=== PATIENT | male | born 1975 | race Caucasian/White ===

== ENCOUNTER 2023-08-08 12:14 | Day surgery (SDC) | payer BC, MEDICARE ==
[2023-08-05 08:25] LABS: BASOPHILS # (AUTO) 0.1 X10'3 (0-0.2); BASOPHILS % (AUTO) 0.7 % (0-1); EOSINOPHILS # (AUTO) 0.1 X10'3 (0-0.9); EOSINOPHILS % (AUTO) 1.3 % (0-6); HEMATOCRIT 51.2 % (42.0-52.0); HEMOGLOBIN 17.1 g/dl (14.0-17.9); LYMPHOCYTES # (AUTO) 1.8 X10'3 (1.1-4.8); LYMPHOCYTES % (AUTO) 25.3 % (21-51); MEAN CORPUSCULAR HEMOGLOBIN 29.9 PG (27.0-31.0); MEAN CORPUSCULAR HGB CONC 33.4 g/dL (33.0-36.5); MEAN CORPUSCULAR VOLUME 89.7 FL (78-98); MEAN PLATELET VOLUME 8.7 FL (7.4-10.4); MONOCYTES # (AUTO) 0.6 X10'3 (0-0.9); MONOCYTES % (AUTO) 8.8 % (2-12); NEUTROPHILS # (AUTO) 4.5 X10'3 (1.8-7.7); NEUTROPHILS % (AUTO) 63.9 % (42-75); PLATELET COUNT 213 X10'3 (140-440); RED CELL DISTRIBUTION WIDTH 14.1 % (11.5-14.5)
[2023-08-05 08:32] LABS: APTT 27 SECONDS (22-32); PROTHROMBIN TIME 10.5 SECONDS (9.0-12.0)
[2023-08-05 08:38] LABS: ANION GAP 6 (8-16); BLOOD UREA NITROGEN 11 MG/DL (7-18); BUN/CREATININE RATIO 10.7 (10.0-20.0); CALCIUM 9.5 MG/DL (8.5-10.1); CHLORIDE 102 MMOL/L (99-107); CHOL/HDL RATIO 3.9 (0.00-4.99); CHOLESTEROL 120 MG/DL (0-200); CREATININE 1.03 MG/DL (0.60-1.10); GLUCOSE 180 MG/DL (70-104); HDL CHOLESTEROL 31 MG/DL (35-60); LDL CHOLESTEROL 66 MG/DL (50-100); POTASSIUM 3.7 MMOL/L (3.5-5.1); SODIUM 136 MMOL/L (135-145); TOTAL CARBON DIOXIDE 28.3 MMOL/L (24-32); TRIGLYCERIDES 174 MG/DL (20-135); eGFR 77 ML/MIN
[~2023-08-08] VITALS: Ht 180.3 cm; Wt 103.7 kg
[2023-08-08] VITALS (8 sets, daily range): BP systolic 115–135; BP diastolic 58–84; PULSE 69–85; RESP 14–15; TEMP 98; O2SAT 93–97
[~2023-08-08 12:14] MED LIST: AMIT50TA15 PO; ATOR10TA87 PO; BACL10TA PO; BUPROPION HCL XL PO; DAPA10TA PO; HYDROCORTISONE PO; LOP25T PO; LOSA-416 PO; METF500T PO; NITR0.4T51 SL; OXYC20TA55 PO; OXYC40TA48 PO; TESTOSTERONE TOP; ZOLP5TAB8 PO
[2023-08-08] MEDS ORDERED: diphenhydrAMINE 25mg capsule PO PRN (12:35)
[2023-08-08] MEDS ORDERED: normal saline 1,000 ML IV SCH (12:35)
[2023-08-08] MEDS ORDERED: LORazepam 0.5 MG tablet PO PRN (12:35)
[2023-08-08] MEDS ORDERED: DULA1.5P SQ (12:51)
[2023-08-08] MEDS ORDERED: FAMO20TA8 PO (12:51)
[2023-08-08] MEDS ORDERED: TEST200V33 IM (12:51)
[2023-08-08] MEDS ORDERED: TRAZ150T78 PO (12:51)
[2023-08-08] MEDS ORDERED: INSU300I3 SQ (12:51)
[2023-08-08] MEDS ORDERED: EMPA25TA PO (12:51)
[2023-08-08] MEDS ORDERED: OXYC30TA85 PO (12:51)
[2023-08-08] MEDS ORDERED: BUPR300T86 PO (12:51)
[2023-08-08] MEDS ORDERED: ASPI81TA52 PO (12:51)
[2023-08-08] MEDS ORDERED: SILD100T70 PO (12:51)
[2023-08-08] MEDS ORDERED: LIDOcaine 1% (10mg/ml) 2ml vial ONE (13:55)
[2023-08-08] MEDS ORDERED: midazolam 1 mg/ML 2ml injection ONE ×2 (13:55→14:45)
[2023-08-08] MEDS ORDERED: verapamil 2.5 mg/ml inj IV ONE (13:55)
[2023-08-08] MEDS ORDERED: iohexol 350MG/ML 100ml bottle IV ONE (13:55)
[2023-08-08] MEDS ORDERED: heparin 1,000unit/ml 10ml vial 10 ML ONE (13:55)
[2023-08-08] MEDS ORDERED: LIDOcaine 1% (10mg/ml)w/preservative inj. 20ml MDV ONE (13:55)
[2023-08-08] MEDS ORDERED: fentaNYL/PF 50MCG/1 ML 2ML syringe ONE (13:55)
[2023-08-08] MEDS ORDERED: nitroGLYCERIN 500mcg/5mL D5W 5 ML IV ONE (14:00)
[2023-08-08] MEDS ORDERED: HYDROcodone/acetaminophen 10/325mg tab PO PRN (15:25)
[2023-08-08] MEDS ORDERED: HYDROcodone/acetaminophen 5mg/325mg tablet PO PRN (15:25)
== END 2023-08-08 17:20 | disposition home or self-care (01) ==
LOC: SSTAY O 12:14
PROVIDERS: ATTEND Student in an Organized Health Care Education/Training Program
DX: R07.89 Other chest pain (principal); I25.10 Atherosclerotic heart disease of native coronary artery without angina pectoris; E11.9 Type 2 diabetes mellitus without complications; I10 Essential (primary) hypertension; E78.5 Hyperlipidemia, unspecified; G47.33 Obstructive sleep apnea (adult) (pediatric); M48.00 Spinal stenosis, site unspecified; Z79.899 Other long term (current) drug therapy; Z79.82 Long term (current) use of aspirin; Z87.891 Personal history of nicotine dependence
CPT/HCPCS: 36415; 80048; 80061; 85025; 85610; 85730; 93005; 93458; 93571; 99152; 99153; J1644; J2250; J3010; J3490; J7030; Q0163; Q9967; 93572; A6258; A6449; C1751; C1769; C1894

== ENCOUNTER 2023-09-19 08:30 | Inpatient (IN) | payer BC, MEDICARE ==
[2023-09-09 14:32] LABS: BILIRUBIN,URINE NEGATIVE (Neg); CLARITY,URINE CLEAR (Clear); COLOR,URINE YELLOW (Yellow); GLUCOSE, URINE >=1000 mg/dl (Neg); KETONES,URINE NEGATIVE (Neg); LEUKOCYTE ESTERASE ,URINE NEGATIVE (Neg); NITRITES, URINE NEGATIVE (Neg); OCCULT BLOOD,URINE NEGATIVE (Neg); PH,URINE 5.5 (4.8-8.0); PROTEIN,URINE NEGATIVE (Neg); UROBILINOGEN,URINE 0.2 E.U/dL (0.2-1.0)
[2023-09-09 14:42] LABS: BASOPHILS # (AUTO) 0.1 X10'3 (0-0.2); BASOPHILS % (AUTO) 0.8 % (0-1); EOSINOPHILS # (AUTO) 0.1 X10'3 (0-0.9); EOSINOPHILS % (AUTO) 0.9 % (0-6); LYMPHOCYTES # (AUTO) 1.8 X10'3 (1.1-4.8); MEAN CORPUSCULAR HEMOGLOBIN 30.3 PG (27.0-31.0); MEAN CORPUSCULAR HGB CONC 33.4 g/dL (33.0-36.5); MEAN CORPUSCULAR VOLUME 90.7 FL (78-98); MEAN PLATELET VOLUME 8.9 FL (7.4-10.4); MONOCYTES # (AUTO) 0.7 X10'3 (0-0.9); MONOCYTES % (AUTO) 8.5 % (2-12); NEUTROPHILS # (AUTO) 5.3 X10'3 (1.8-7.7); NEUTROPHILS % (AUTO) 66.8 % (42-75); PRE OP HEMOGLOBIN 17.4 g/dL (14.0-17.9); PRE OP PLATELET COUNT 208 X10'3 (140-440); PRE OP WHITE BLOOD COUNT 7.9 10'3 (4.8-10.8); RED BLOOD COUNT 5.74 X10'6 (4.70-6.10); RED CELL DISTRIBUTION WIDTH 14.4 % (11.5-14.5)
[2023-09-09 14:45] LABS: UA COLLECTION TYPE NON-SPECIFIED
[2023-09-09 14:46] LABS: RBC,URINE 0-2 /HPF (0-2); WBC,URINE 0-4 /HPF (0-4)
[2023-09-09 14:47] LABS: BACTERIA,URINE FEW /HPF (Neg); MUCUS STRANDS NONE SEEN /LPF (Neg); SQUAMOUS EPITHELIAL CELL,UR FEW /LPF (FEW)
[2023-09-09 14:47] LABS: ALBUMIN 4.1 G/DL (3.4-5.0); ALBUMIN/GLOBULIN RATIO 1.2 (1.1-1.5); ALKALINE PHOSPHATASE 99 IU/L (46-116); BLOOD UREA NITROGEN 12 MG/DL (7-18); BUN/CREATININE RATIO 14.1 (10.0-20.0); CALCIUM 8.9 MG/DL (8.5-10.1); CHLORIDE 97 MMOL/L (99-107); CREATININE 0.85 MG/DL (0.60-1.10); PRE OP ALT 34 U/L (30-65); PRE OP ANION GAP 7 (8-16); PRE OP AST 20 U/L (10-37); PRE OP BILIRUB, TOTAL 0.5 MG/DL (0.0-1.0); PRE OP GLUCOSE 168 MG/DL (70-104); PRE OP POTASSIUM 3.8 MMOL/L (3.4-5.1); PRE OP SODIUM 133 MMOL/L (135-145); TOTAL PROTEIN 7.6 G/DL (6.4-8.2); eGFR > 90 ML/MIN
[2023-09-09 15:24] LABS: HEMOGLOBIN A1C 8.9 % (4.5-6.2)
[2023-09-09 15:38] LABS: PRE OP PROTIME 10.8 SECONDS (9.0-12.0)
[2023-09-10 09:16] LABS: ABG BASE EXCESS -2.4 mmol/L (-2.0-2.0); ABG HCO3 21.7 mmol/L (22.0-26.0); ABG OXYGEN SATURATION 93.4 % (94-97); ABG PCO2 (T) 36.2 mmHg (35.0-48.0); ABG PH (T) 7.396 (7.340-7.440); ABG PO2 (T) 62.2 mmHg (75.0-100.0); ALLEN'S TEST POSITIVE; FCOHb 0.6 % (0.0-3.9); FHHb 6.6 % (0.0-5.0); FMetHb 0.1 % (0.0-1.5); FO2Hb 92.7 % (94-97); MODE ROOM AIR; TOTAL HEMOGLOBIN 18.2 G/dl (14.0-17.9)
[2023-09-19] VITALS (14 sets, daily range): BP systolic 97–143; BP diastolic 46–77; PULSE 59–115; RESP 5–30; TEMP 97.4; O2SAT 93–99
[~2023-09-19] VITALS: Ht 175.3 cm; Wt 101.2 kg
[~2023-09-19 08:30] MED LIST changes: -AMIT50TA15 PO; +ASPI81TA52 PO; -BACL10TA PO; +BUPR300T86 PO; -BUPROPION HCL XL PO; -DAPA10TA PO; +DOCUMENT DATE & TIME OF BETA-BLOCKER PO ONE; +DULA1.5P SQ; +EMPA25TA PO; +FAMO20TA8 PO; +INSU300I3 SQ; +Insulin Reg/NS 100units/100mL 100 ML IV SCH; +LORazepam 2 mg/ml vial IV ONE; -LOSA-416 PO; -METF500T PO; +OXYC20TA40 PO; -OXYC20TA55 PO; +OXYC30TA85 PO; -OXYC40TA48 PO; +SILD100T70 PO; +TEST200V33 IM; -TESTOSTERONE TOP; +TRAZ150T78 PO; -ZOLP5TAB8 PO; +[UNRECOGNIZED DRUG - OTHER] PO; +cefazolin 2gm/D5W 100mL 100 ML IV ONE; +dextrose 50%-water 50ml dispensing syringe IV PRN; +famotidine 20mg tablet PO ONE; +metoprolol tartrate 12.5mg (1/2 tablet) PO ONE; +mupirocin 2% nasal ointment 1gm UD NS ONE; +ringers solution, lacted 1,000 ML IV SCH; +vancomycin 1,500 MG in NS 300ml IV soln IV ONE
[2023-09-19] MEDS ORDERED: epiNEPHrine 1 mg/ml inj ONE ×2 (12:18→13:08)
[2023-09-19] MEDS ORDERED: ceFAZolin 1000mg inj ONE (12:18)
[2023-09-19] MEDS ORDERED: BUPIVAcaine 0.5% inj/PF 30 ML ONE ×2 (12:19→12:47)
[2023-09-19] MEDS ORDERED: propofol inj 20 ML IV ONE (12:48)
[2023-09-19] MEDS ORDERED: MIDAZolam 1mg/ml 10ml vial ONE (12:50)
[2023-09-19] MEDS ORDERED: SUfentanil 50mcg/ml 1ml amp IV ONE ×2 (12:50→12:53)
[2023-09-19] MEDS ORDERED: rocuronium 10mg/ml inj IV ONE ×2 (12:50)
--- NOTE | 2023-09-19 13:22 | NUR ---
BLACK BAG PACK, 1 PERSONAL BAG, IS ALL BROUGHT TO ROOM 2038, PLACED IN DRAWERS.
[2023-09-19 14:00] LABS: ABG HCO3 23.1 mmol/L (22.0-26.0); ABG OXYGEN SATURATION 98.2 % (94-97); ABG PCO2 37.1 mmHg (35.0-48.0); ABG PH 7.412 (7.340-7.440); ABG PO2 109.2 mmHg (75.0-100.0); CL (ABG) 99 mmol/L (99-107); FHHb 1.8 % (0.0-5.0); FMetHb 0.3 % (0.0-1.5); FO2Hb 97.9 % (94-97); GLUCOSE (ABG) 107 mg/dl (70-104); IONIZED CA (ABG) 1.13 mmol/L (1.10-1.30); K (ABG) 3.8 mmol/L (3.5-5.1); TOTAL HEMOGLOBIN 15.8 G/dl (14.0-17.9)
[2023-09-19 14:16] LABS: ACT @ 1.70 U 304 SEC (193-297); ACT @ 2.84 U 458 SEC (260-420); BASELINE ACT 142 SEC (101-148)
[2023-09-19] MEDS ORDERED: ceFAZolin 1000mg inj IM ONE (14:26)
[2023-09-19] MEDS ORDERED: epiNEPHrine 1 mg/ml inj SQ ONE (14:28)
[2023-09-19] MEDS ORDERED: papaverine 30 mg/ml 2ml inj. IV ONE (14:30)
[2023-09-19] MEDS ORDERED: heparin 10,000 units/1 ML INJ IV ONE (14:31)
[2023-09-19] MEDS ORDERED: BUPIVAcaine 0.5% inj/PF 30 ml vial IJ ONE (14:33)
[2023-09-19 15:17] LABS: ABG BASE EXCESS VENOUS -0.6 mmol/L (-2.0 - 2.0); ABG HCO3 VENOUS 25.7 mmol/L (21.0-28.0); ABG OXYGEN SATURATION VENOUS 71.6 % (75 - 99 %); ABG PCO2 VENOUS 48.1 mmHg (41.0-54.0); ABG PH (VENOUS) 7.346 (7.310-7.450); ABG PO2 VENOUS 36.6 mmHg (25.0-35.0); CL (ABG) 101 mmol/L (99-107); FCOHb VENOUS 0.1 %; FHHb VENOUS 28.3 %; FMetHb VENOUS 0.1 % (0.0 - 0.5); FO2Hb VENOUS 71.5 %; GLUCOSE (ABG) 120 mg/dl (70-104); IONIZED CA (ABG) 1.11 mmol/L (1.10-1.30); TOTAL HEMOGLOBIN 15.8 G/dl (14.0-17.9)
[2023-09-19 16:14] LABS: ABG BASE EXCESS -4.4 mmol/L (-2.0-2.0); ABG HCO3 21.9 mmol/L (22.0-26.0); ABG OXYGEN SATURATION 68.4 % (94-97); ABG PCO2 44.3 mmHg (35.0-48.0); ABG PH 7.311 (7.340-7.440); CL (ABG) 101 mmol/L (99-107); FCOHb 0.2 % (0.0-3.9); FHHb 31.5 % (0.0-5.0); FO2Hb 68.3 % (94-97); GLUCOSE (ABG) 130 mg/dl (70-104); IONIZED CA (ABG) 1.11 mmol/L (1.10-1.30); TOTAL HEMOGLOBIN 16.1 G/dl (14.0-17.9)
[2023-09-19 17:00] LABS: ACTIVATED CLOTTING TIME 130 SEC (101-148)
[2023-09-19 17:00] LABS: ABG BASE EXCESS VENOUS -3.3 mmol/L (-2.0 - 2.0); ABG HCO3 VENOUS 22.3 mmol/L (21.0-28.0); ABG OXYGEN SATURATION VENOUS 73.1 % (75 - 99 %); ABG PCO2 VENOUS 41.9 mmHg (41.0-54.0); ABG PH (VENOUS) 7.344 (7.310-7.450); ABG PO2 VENOUS 37.8 mmHg (25.0-35.0); CL (ABG) 102 mmol/L (99-107); FCOHb VENOUS 0.2 %; FHHb VENOUS 26.8 %; FMetHb VENOUS 0.3 % (0.0 - 0.5); FO2Hb VENOUS 72.7 %; GLUCOSE (ABG) 132 mg/dl (70-104); K (ABG) 3.8 mmol/L (3.5-5.1)
[2023-09-19] MEDS ORDERED: albumin (Human) 5% 250ml 250 ML IV ONE (17:16)
[2023-09-19] MEDS ORDERED: bisacodyl 10mg suppository rectal RC PRN (17:25)
[2023-09-19] MEDS ORDERED: niCARDipine-NS 40mg/200ml IVPB 200 ML IV PRN (17:25)
[2023-09-19] MEDS ORDERED: potassium Cl 20 mEq SR tablet PO PRN (17:25)
[2023-09-19] MEDS ORDERED: mineral oil 133ml enema RC PRN (17:25)
[2023-09-19] MEDS ORDERED: Neutra Phos packet PO PRN (17:25)
[2023-09-19] MEDS ORDERED: magnesium 2GM in 50ml NS 50 ML IV PRN (17:25)
[2023-09-19] MEDS ORDERED: potassium CL 10mEq/100ml bag 100 ML IV PRN (17:25)
[2023-09-19] MEDS ORDERED: dextrose 50%-water 50ml dispensing syringe IV PRN (17:25)
[2023-09-19] MEDS ORDERED: HYDROcodone/acetaminophen 10/325mg tab PO PRN (17:25)
[2023-09-19] MEDS ORDERED: magnesium hydroxide 30ml (MOM) UD suspension PO PRN (17:25)
[2023-09-19] MEDS ORDERED: sodium chloride 0.45% 1,000 ML IV SCH (17:25)
[2023-09-19] MEDS ORDERED: potassium Cl 40MEQ/270ML bag 250 ML IV PRN (17:25)
[2023-09-19] MEDS ORDERED: sodium phosphate inj. 30 MMOL in dextrose 5%-water 250 ML IV PRN (17:25)
[2023-09-19] MEDS ORDERED: metoclopramide 5 mg/ml inj IV PRN (17:25)
[2023-09-19] MEDS ORDERED: potassium Cl 40MEQ/1/2NS 520ml 520 ML IV PRN (17:25)
[2023-09-19] MEDS ORDERED: ondansetron/PF 4mg/2ml inj IV PRN (17:25)
[2023-09-19] MEDS ORDERED: sodium phosphate inj. 15 MMOL in dextrose 5%-water 250 ML IV PRN (17:25)
[2023-09-19] MEDS ORDERED: albumin (Human) 5% 250ml 250 ML IV PRN (17:25)
[2023-09-19] MEDS: Insulin Reg/NS 100units/100mL 100 ML IV SCH (17:25)
[2023-09-19] MEDS ORDERED: insulin glargine (Lantus) pen - multi-dose SQ PRN (17:25)
[2023-09-19] MEDS ORDERED: acetaminophen 325mg tablet PO PRN ×2 (17:25)
[2023-09-19] MEDS ORDERED: morphine 2 MG/ML inj. syringe IV PRN (17:25)
[2023-09-19] MEDS ORDERED: sugammadex 200mg/2ml injection IV ONE (17:53)
[2023-09-19] MEDS: nitroGLYCERIN-Tridil 50MG/D5W 250 ML IV SCH (18:00)
--- NOTE | 2023-09-19 18:11 | NUR ---
NO SBT DONE DUE TO PATIENT WAKING UP WILD AND THRASHING AROUND ATTEMPTING TO PULL LINES OUT. DR CRISTOBAL AT BEDSIDE WITH ORDER TO EXTUBATE THE PATIENT. DR CHEN, ANESTHESIA, AT BEDSIDE WELL. DR CHEN GAVE PT A REVERSAL AGENT AND PERSONALLY EXTUBATED PATIENT. NO WEANING PARAMETERS DONE. POST OP ABG DONE AND REPORTED TO DAYSPAFT JOY CARVAJAL AND NOC OSMAR GAMEZ. Addendum: 09/19/23 at 1814 by Sharonda Cintron RT Amended: Links added.
[2023-09-19] MEDS ORDERED: morphine 4 MG/ML inj SYRINge IV ONE ×2 (18:12→19:10)
[2023-09-19 18:13] LABS: ABG HCO3 22.3 mmol/L (22.0-26.0); ABG OXYGEN SATURATION 93.2 % (94-97); ABG PCO2 (T) 47.6 mmHg (35.0-48.0); ABG PH (T) 7.284 (7.340-7.440); ABG PO2 (T) 67.9 mmHg (75.0-100.0); FHHb 6.7 % (0.0-5.0); FLOW 4 L/min; FMetHb 0.2 % (0.0-1.5); FO2Hb 92.1 % (94-97); MODE NASAL CANNULA; PATIENT TEMPERATURE 36.2; TOTAL HEMOGLOBIN 16.5 G/dl (14.0-17.9)
[2023-09-19 18:22] LABS: BASOPHILS # (AUTO) 0.1 X10'3 (0-0.2); BASOPHILS % (AUTO) 0.3 % (0-1); EOSINOPHILS # (AUTO) 0.1 X10'3 (0-0.9); EOSINOPHILS % (AUTO) 0.3 % (0-6); HEMOGLOBIN 15.4 g/dl (14.0-17.9); LYMPHOCYTES # (AUTO) 2.9 X10'3 (1.1-4.8); LYMPHOCYTES % (AUTO) 12.3 % (21-51); MEAN CORPUSCULAR HEMOGLOBIN 29.5 PG (27.0-31.0); MEAN CORPUSCULAR HGB CONC 32.1 g/dL (33.0-36.5); MEAN CORPUSCULAR VOLUME 91.9 FL (78-98); MEAN PLATELET VOLUME 8.5 FL (7.4-10.4); MONOCYTES # (AUTO) 1.7 X10'3 (0-0.9); MONOCYTES % (AUTO) 7.3 % (2-12); NEUTROPHILS # (AUTO) 18.9 X10'3 (1.8-7.7); NEUTROPHILS % (AUTO) 79.8 % (42-75); PLATELET COUNT 255 X10'3 (140-440); RED BLOOD COUNT 5.22 X10'6 (4.70-6.10); RED CELL DISTRIBUTION WIDTH 14.4 % (11.5-14.5); WHITE BLOOD COUNT 23.6 X10'3 (4.5-11.0)
[2023-09-19 18:36] LABS: APTT 27 SECONDS (22-32); INR 1.1 INR; PROTHROMBIN TIME 11.9 SECONDS (9.0-12.0)
[2023-09-19 18:39] LABS: ALANINE AMINOTRANSFERASE 25 U/L (12-78); ALBUMIN 3.5 G/DL (3.4-5.0); ALBUMIN/GLOBULIN RATIO 1.4 (1.1-1.5); ALKALINE PHOSPHATASE 65 IU/L (46-116); ANION GAP 9 (8-16); ASPARTATE AMINO TRANSFERASE 27 U/L (10-37); BILIRUBIN,TOTAL 0.7 MG/DL (0.1-1.0); BLOOD UREA NITROGEN 12 MG/DL (7-18); BUN/CREATININE RATIO 13.8 (10.0-20.0); CHLORIDE 105 MMOL/L (99-107); CREATININE 0.87 MG/DL (0.60-1.10); GLUCOSE 123 MG/DL (70-104); MAGNESIUM 1.8 MG/DL (1.5-2.4); PHOSPHORUS 2.5 MG/DL (2.3-4.5); POTASSIUM 3.6 MMOL/L (3.5-5.1); SODIUM 139 MMOL/L (135-145); TOTAL CARBON DIOXIDE 25.2 MMOL/L (24-32); eCRCL 104 ML/MIN; eGFR > 90 ML/MIN
[2023-09-19] MEDS: morphine 4 MG/ML inj SYRINge IV PRN ×3 (19:11→22:54)
[2023-09-19] MEDS: ketorolac trometh. 30mg/ml inj. IM SCH (19:49)
[2023-09-19] MEDS: vancomycin/NS 1 GM ADD-VANTAGE 250 ML IV SCH (19:49)
[2023-09-19] MEDS: mupirocin 2% nasal ointment 1gm UD NS SCH (19:50)
[2023-09-19] MEDS: potassium Cl 20mEq/100mL bag 100 ML IV PRN ×2 (19:57→20:36)
[2023-09-19] MEDS ORDERED: acetaminophen 1,000mg/100ml IV 100 ML IV ONE (20:15)
[2023-09-19] MEDS: magnesium 4gm in 100ml NS 100 ML IV PRN (21:05)
[2023-09-19] MEDS: atorvastatin 10mg tablet PO SCH (21:13)
[2023-09-19] MEDS: sennosides/docusate sodium tablet PO SCH (21:14)
[2023-09-19] MEDS: HYDROcodone/acetaminophen 10/325mg tab PO PRN (21:14)
[2023-09-20] VITALS (24 sets, daily range): BP systolic 87–147; BP diastolic 46–75; PULSE 92–111; RESP 9–35; O2SAT 91–98
[2023-09-20 00:38] LABS: BASOPHILS % (AUTO) 0.1 % (0-1); EOSINOPHILS % (AUTO) 0 % (0-6); HEMOGLOBIN 14.7 g/dl (14.0-17.9); LYMPHOCYTES # (AUTO) 0.7 X10'3 (1.1-4.8); LYMPHOCYTES % (AUTO) 4.5 % (21-51); MEAN CORPUSCULAR HEMOGLOBIN 30.4 PG (27.0-31.0); MEAN CORPUSCULAR HGB CONC 33.3 g/dL (33.0-36.5); MEAN CORPUSCULAR VOLUME 91.2 FL (78-98); MEAN PLATELET VOLUME 8.6 FL (7.4-10.4); MONOCYTES # (AUTO) 0.9 X10'3 (0-0.9); NEUTROPHILS # (AUTO) 13.2 X10'3 (1.8-7.7); NEUTROPHILS % (AUTO) 89.4 % (42-75); PLATELET COUNT 233 X10'3 (140-440); RED BLOOD COUNT 4.83 X10'6 (4.70-6.10); RED CELL DISTRIBUTION WIDTH 14.5 % (11.5-14.5); WHITE BLOOD COUNT 14.7 X10'3 (4.5-11.0)
[2023-09-20 00:51] LABS: ALBUMIN 3.5 G/DL (3.4-5.0); ANION GAP 11 (8-16); BLOOD UREA NITROGEN 13 MG/DL (7-18); BUN/CREATININE RATIO 17.6 (10.0-20.0); CHLORIDE 103 MMOL/L (99-107); CREATININE 0.74 MG/DL (0.60-1.10); GLUCOSE 118 MG/DL (70-104); MAGNESIUM 2.8 MG/DL (1.5-2.4); PHOSPHORUS 3.6 MG/DL (2.3-4.5); POTASSIUM 4.4 MMOL/L (3.5-5.1); SODIUM 136 MMOL/L (135-145); TOTAL CARBON DIOXIDE 22.1 MMOL/L (24-32); eCRCL 122 ML/MIN; eGFR > 90 ML/MIN
[2023-09-20] MEDS: ceFAZolin/D5W- 1GM premix 50 ML IV SCH ×4 (01:31→23:56)
[2023-09-20] MEDS: ketorolac trometh. 30mg/ml inj. IM SCH ×2 (02:00→09:24)
[2023-09-20] MEDS: HYDROcodone/acetaminophen 10/325mg tab PO PRN (05:08)
[2023-09-20 05:26] LABS: BASOPHILS % (AUTO) 0.1 % (0-1); EOSINOPHILS % (AUTO) 0 % (0-6); HEMATOCRIT 44.5 % (42.0-52.0); HEMOGLOBIN 14.4 g/dl (14.0-17.9); LYMPHOCYTES # (AUTO) 0.7 X10'3 (1.1-4.8); LYMPHOCYTES % (AUTO) 6.1 % (21-51); MEAN CORPUSCULAR HEMOGLOBIN 29.8 PG (27.0-31.0); MEAN CORPUSCULAR HGB CONC 32.4 g/dL (33.0-36.5); MEAN CORPUSCULAR VOLUME 91.9 FL (78-98); MEAN PLATELET VOLUME 8.7 FL (7.4-10.4); MONOCYTES # (AUTO) 0.8 X10'3 (0-0.9); MONOCYTES % (AUTO) 6.8 % (2-12); NEUTROPHILS # (AUTO) 10.6 X10'3 (1.8-7.7); PLATELET COUNT 214 X10'3 (140-440); RED BLOOD COUNT 4.84 X10'6 (4.70-6.10); RED CELL DISTRIBUTION WIDTH 14.9 % (11.5-14.5); WHITE BLOOD COUNT 12.2 X10'3 (4.5-11.0)
[2023-09-20 06:12] LABS: ALANINE AMINOTRANSFERASE 27 U/L (12-78); ALBUMIN 3.4 G/DL (3.4-5.0); ALBUMIN/GLOBULIN RATIO 1.3 (1.1-1.5); ALKALINE PHOSPHATASE 62 IU/L (46-116); ANION GAP 17 (8-16); ASPARTATE AMINO TRANSFERASE 59 U/L (10-37); BILIRUBIN,TOTAL 0.9 MG/DL (0.1-1.0); BLOOD UREA NITROGEN 13 MG/DL (7-18); BUN/CREATININE RATIO 17.1 (10.0-20.0); CALCIUM 7.8 MG/DL (8.5-10.1); CHLORIDE 102 MMOL/L (99-107); CREATININE 0.76 MG/DL (0.60-1.10); GLUCOSE 138 MG/DL (70-104); SODIUM 136 MMOL/L (135-145); TOTAL CARBON DIOXIDE 17.3 MMOL/L (24-32); eCRCL 119 ML/MIN; eGFR > 90 ML/MIN
--- NOTE | 2023-09-20 06:30 | NUR ---
Patient in room ICU 2038. I have received report from Veronica HAMILTON and had the opportunity to ask questions and assume patient care.
[2023-09-20 06:37] LABS: ABG PO2 35.3 mmHg (75.0-100.0)
[2023-09-20] MEDS: morphine 4 MG/ML inj SYRINge IV PRN (06:58)
--- NOTE | 2023-09-20 07:21 | NUR ---
Dr. Burnett - ST Elev RN noted ST elevation on bedside monitor. [address] Berg with info. Reported pt is stable. He will see pt when he comes in. PA aware also
[2023-09-20] MEDS ORDERED: TESTOSTERONE CYPIONATE 200 MG/ML VIAL IM SCH (07:50)
[2023-09-20] MEDS: hydrocortisone 10mg tablet PO SCH ×2 (08:00→20:05)
[2023-09-20] MEDS: vancomycin/NS 1 GM ADD-VANTAGE 250 ML IV SCH ×2 (09:21→20:07)
[2023-09-20] MEDS: LIDOcaine 5% patch TP SCH (09:21)
[2023-09-20] MEDS: sennosides/docusate sodium tablet PO SCH ×2 (09:22→20:07)
[2023-09-20] MEDS: aspirin 81mg tab.chew PO SCH (09:22)
[2023-09-20] MEDS: metoprolol tartrate 12.5mg (1/2 tablet) PO SCH ×2 (09:22→20:29)
[2023-09-20] MEDS: mupirocin 2% nasal ointment 1gm UD NS SCH ×2 (09:23→20:06)
[2023-09-20] MEDS: oxyCODONE/APAP 10/325mg tablet PO PRN ×4 (09:23→20:06)
[2023-09-20] MEDS: buPROPion SR 150mg tablet PO SCH ×2 (09:23→20:07)
[2023-09-20] MEDS: ketorolac trometh. 30mg/ml inj. IV SCH ×3 (09:35→20:29)
--- NOTE | 2023-09-20 09:45 | NUR ---
Art line and solomon D/c per Dr. Berg's order, cannulas intact
--- NOTE | 2023-09-20 11:23 | NUR ---
Nutrition consult: Per EMR pt POD #1 s/p CABG x4 and with T2DM with A1c 8.9%. Pt would benefit from post CABG and DM nutrition therapy educations as appropriate and as able. Will continue to follow. Addendum: 09/20/23 at [address] Amended: Links added.
[2023-09-20 11:24] LABS: MAGNESIUM 2.6 MG/DL (1.5-2.4)
[2023-09-20] MEDS: nitroGLYCERIN-Tridil 50MG/D5W 250 ML IV SCH (16:23)
--- NOTE | 2023-09-20 18:26 | NUR ---
Patient in room ICU 2038. I have received report from Lata Lance RN and had the opportunity to ask questions and assume patient care.
[2023-09-20] MEDS: insulin Lispro (HumaLOG) vial - multi-dose SQ SCH (19:29)
[2023-09-20] MEDS: traZODone 150mg tablet PO SCH (20:06)
[2023-09-20] MEDS: atorvastatin 10mg tablet PO SCH (20:14)
[2023-09-20] MEDS: insulin glargine (Lantus) pen - multi-dose SQ SCH (22:30)
[2023-09-21] VITALS (23 sets, daily range): BP systolic 102–140; BP diastolic 54–87; PULSE 80–118; RESP 12–26; TEMP 98.6; O2SAT 90–100
[2023-09-21] MEDS: oxyCODONE/APAP 10/325mg tablet PO PRN ×5 (00:34→21:50)
[2023-09-21] MEDS: ketorolac trometh. 30mg/ml inj. IV SCH ×4 (02:06→19:52)
[2023-09-21 02:38] LABS: BASOPHILS % (AUTO) 0.1 % (0-1); EOSINOPHILS % (AUTO) 0 % (0-6); HEMATOCRIT 43.3 % (42.0-52.0); HEMOGLOBIN 14.3 g/dl (14.0-17.9); LYMPHOCYTES # (AUTO) 1.3 X10'3 (1.1-4.8); LYMPHOCYTES % (AUTO) 8.5 % (21-51); MEAN CORPUSCULAR HEMOGLOBIN 30.4 PG (27.0-31.0); MEAN CORPUSCULAR HGB CONC 33.1 g/dL (33.0-36.5); MEAN PLATELET VOLUME 8.2 FL (7.4-10.4); MONOCYTES # (AUTO) 1.6 X10'3 (0-0.9); MONOCYTES % (AUTO) 10.7 % (2-12); NEUTROPHILS # (AUTO) 12.2 X10'3 (1.8-7.7); NEUTROPHILS % (AUTO) 80.7 % (42-75); PLATELET COUNT 221 X10'3 (140-440); RED CELL DISTRIBUTION WIDTH 14.8 % (11.5-14.5); WHITE BLOOD COUNT 15.1 X10'3 (4.5-11.0)
[2023-09-21] MEDS: Insulin Reg/NS 100units/100mL 100 ML IV SCH (02:45)
[2023-09-21 02:47] LABS: ANION GAP 15 (8-16); BLOOD UREA NITROGEN 25 MG/DL (7-18); BUN/CREATININE RATIO 24.8 (10.0-20.0); CALCIUM 8.1 MG/DL (8.5-10.1); CHLORIDE 102 MMOL/L (99-107); CREATININE 1.01 MG/DL (0.60-1.10); GLUCOSE 196 MG/DL (70-104); POTASSIUM 4.3 MMOL/L (3.5-5.1); SODIUM 134 MMOL/L (135-145); TOTAL CARBON DIOXIDE 17.2 MMOL/L (24-32); eCRCL 89 ML/MIN; eGFR 79 ML/MIN
[2023-09-21 03:26] LABS: PHOSPHORUS 2.4 MG/DL (2.3-4.5)
[2023-09-21] MEDS: magnesium 4gm in 100ml NS 100 ML IV PRN (04:20)
--- NOTE | 2023-09-21 06:21 | NUR ---
Problems reprioritized. Patient report given, questions answered & plan of care reviewed with Angie HAMILTON.
--- NOTE | 2023-09-21 06:30 | NUR ---
Assumed care of pt after report from Santa HAMILTON.
[2023-09-21] MEDS: pantoprazole 40mg Tablet.DR PO SCH (07:47)
[2023-09-21] MEDS: LIDOcaine 5% patch TP SCH (08:00)
--- NOTE | 2023-09-21 08:00 | NUR ---
NANCY Florez, at bedside, pulled chest tubes and RN DC'd the hines cath. Pt tolerated both well. Pt on O2 2L NC.
[2023-09-21] MEDS: metoprolol tartrate 12.5mg (1/2 tablet) PO SCH (08:05)
[2023-09-21] MEDS ORDERED: magnesium 2GM in 50ml NS 50 ML IV PRN (08:10)
[2023-09-21] MEDS ORDERED: potassium Cl 20 mEq SR tablet PO PRN ×2 (08:10)
[2023-09-21] MEDS ORDERED: potassium Cl 20mEq/100mL bag 100 ML IV PRN (08:10)
[2023-09-21] MEDS ORDERED: potassium CL 10mEq/100ml bag 100 ML IV PRN (08:10)
[2023-09-21] MEDS ORDERED: magnesium 4gm in 100ml NS 100 ML IV PRN (08:10)
[2023-09-21] MEDS ORDERED: potassium Cl 40MEQ/1/2NS 520ml 520 ML IV PRN (08:10)
[2023-09-21] MEDS ORDERED: potassium Cl 40MEQ/270ML bag 250 ML IV PRN (08:10)
[2023-09-21] MEDS ORDERED: amiodarone 150mg/dext, iso-os 100 ML IV ONE (08:25)
--- NOTE | 2023-09-21 08:30 | NUR ---
Pt was assisted OOB to chair for breakfast and HR changed to AF RVR. Amiodarone bolus and gtt ordered and started. Pt was assisted back to bed. Routine medications were given along w/ pain med. HR began to decrease w/ the Amio bolus.
[2023-09-21] MEDS ORDERED: metoprolol tartrate 25mg tablet PO ONE (08:34)
[2023-09-21] MEDS: amiodarone/D5 360MG/200ML BAG 200 ML IV SCH ×2 (08:37→14:53)
[2023-09-21] MEDS: ceFAZolin/D5W- 1GM premix 50 ML IV SCH (08:41)
[2023-09-21] MEDS: mupirocin 2% nasal ointment 1gm UD NS SCH (08:41)
[2023-09-21] MEDS: buPROPion SR 150mg tablet PO SCH ×2 (08:42→19:54)
[2023-09-21] MEDS: aspirin 81mg tab.chew PO SCH (08:43)
[2023-09-21] MEDS: sennosides/docusate sodium tablet PO SCH ×2 (08:45→19:54)
[2023-09-21] MEDS: metoprolol tartrate 25mg tablet PO SCH ×2 (08:49→19:53)
[2023-09-21] MEDS: hydrocortisone 10mg tablet PO SCH ×2 (09:02→20:00)
[2023-09-21] MEDS: insulin Lispro (HumaLOG) vial - multi-dose SQ SCH ×2 (09:18→13:59)
--- NOTE | 2023-09-21 10:30 | NUR ---
pt has been resting well and VSS. Pt's went home not feeling well, and was encouraged to check for Covid 19. Pt's called to report that she is Covid +. Pt has been tested; results are pending.
--- NOTE | 2023-09-21 12:30 | NUR ---
Pt moving well and OOB to chair for lunch.
--- NOTE | 2023-09-21 13:30 | NUR ---
Pt remains OOB to chair. Fu A & B are both negative. Covid test still pending.
--- NOTE | 2023-09-21 15:37 | NUR ---
Nutrition consult: Attempted visit with pt at bedside however patient unavailable with curtains pulled back and door closed. Will f/u at another time. Noted pt eating poorly, documented with 0-25% PO intake while on a solid diet. Recommend an Ensure Enlive TID to optimize nutrient intake and promote wound healing, pending physician approval in EMR. Will obtain food preferences once able to f/u with pt. Will continue to follow. Addendum: 09/21/23 at [address] Amended: Links added.
--- NOTE | 2023-09-21 17:40 | NUR ---
Report via SBAR given to Jason HAMILTON. Pt going to [facility] [id number] via w/ Tele 15.
--- NOTE | 2023-09-21 17:56 | NUR ---
Pt arrived from ICU. Placed in bed and oriented to room.
[2023-09-21] MEDS: magnesium Cl slow-release 64mg tablet PO SCH (19:53)
[2023-09-21] MEDS: atorvastatin 10mg tablet PO SCH (21:50)
[2023-09-21] MEDS: traZODone 150mg tablet PO SCH (21:50)
[2023-09-21] MEDS: insulin glargine (Lantus) pen - multi-dose SQ SCH (23:30)
[2023-09-22] VITALS (13 sets, daily range): BP systolic 93–122; BP diastolic 53–79; PULSE 79–107; RESP 16–20; TEMP 96.7–99.2; O2SAT 91–97
[2023-09-22] MEDS: amiodarone/D5 360MG/200ML BAG 200 ML IV SCH ×4 (00:47→15:05)
[2023-09-22] MEDS: ketorolac trometh. 30mg/ml inj. IV SCH ×5 (02:27→22:17)
[2023-09-22] MEDS: oxyCODONE/APAP 10/325mg tablet PO PRN ×5 (02:27→19:28)
--- NOTE | 2023-09-22 06:48 | NUR ---
Problems reprioritized. Patient report given, questions answered & plan of care reviewed with Arie HAMILTON. Pt stable at transfer of care
[2023-09-22 06:58] LABS: BASOPHILS % (AUTO) 0.4 % (0-1); EOSINOPHILS % (AUTO) 0.1 % (0-6); HEMATOCRIT 40.5 % (42.0-52.0); HEMOGLOBIN 13.5 g/dl (14.0-17.9); LYMPHOCYTES # (AUTO) 1.8 X10'3 (1.1-4.8); LYMPHOCYTES % (AUTO) 16.8 % (21-51); MEAN CORPUSCULAR HEMOGLOBIN 30.4 PG (27.0-31.0); MEAN CORPUSCULAR HGB CONC 33.2 g/dL (33.0-36.5); MEAN CORPUSCULAR VOLUME 91.4 FL (78-98); MEAN PLATELET VOLUME 8.2 FL (7.4-10.4); MONOCYTES # (AUTO) 1.1 X10'3 (0-0.9); MONOCYTES % (AUTO) 10.5 % (2-12); NEUTROPHILS # (AUTO) 7.8 X10'3 (1.8-7.7); NEUTROPHILS % (AUTO) 72.2 % (42-75); PLATELET COUNT 198 X10'3 (140-440); RED BLOOD COUNT 4.43 X10'6 (4.70-6.10); RED CELL DISTRIBUTION WIDTH 14.9 % (11.5-14.5); WHITE BLOOD COUNT 10.7 X10'3 (4.5-11.0)
[2023-09-22 07:13] LABS: ALBUMIN 2.6 G/DL (3.4-5.0); ANION GAP 10 (8-16); BLOOD UREA NITROGEN 29 MG/DL (7-18); BUN/CREATININE RATIO 42.6 (10.0-20.0); CALCIUM 8.5 MG/DL (8.5-10.1); CHLORIDE 103 MMOL/L (99-107); CREATININE 0.68 MG/DL (0.60-1.10); GLUCOSE 172 MG/DL (70-104); SODIUM 135 MMOL/L (135-145); TOTAL CARBON DIOXIDE 21.7 MMOL/L (24-32); eCRCL 133 ML/MIN; eGFR > 90 ML/MIN
[2023-09-22] MEDS: hydrocortisone 10mg tablet PO SCH ×2 (07:40→22:16)
[2023-09-22] MEDS ORDERED: furosemide 40mg/4ml inj IV ONE (07:40)
[2023-09-22] MEDS: pantoprazole 40mg Tablet.DR PO SCH (07:40)
[2023-09-22] MEDS: buPROPion SR 150mg tablet PO SCH ×2 (07:41→19:22)
[2023-09-22] MEDS: sennosides/docusate sodium tablet PO SCH ×2 (07:41→19:22)
[2023-09-22] MEDS: metoprolol tartrate 25mg tablet PO SCH ×4 (07:41→20:00)
[2023-09-22] MEDS: magnesium Cl slow-release 64mg tablet PO SCH ×2 (07:41→19:21)
[2023-09-22] MEDS: LIDOcaine 5% patch TP SCH (07:42)
[2023-09-22] MEDS: aspirin 81mg tab.chew PO SCH (07:42)
[2023-09-22] MEDS: metoprolol tartrate 12.5mg (1/2 tablet) PO SCH (07:42)
[2023-09-22] MEDS: lactose-reduced food (Ensure Enlive) - 237ml bottle PO SCH ×3 (08:00→18:00)
[2023-09-22 10:05] LABS: MAGNESIUM 2.2 MG/DL (1.5-2.4)
[2023-09-22] MEDS: insulin Lispro (HumaLOG) vial - multi-dose SQ SCH ×3 (10:52→19:08)
--- NOTE | 2023-09-22 15:18 | NUR ---
Diabetes and CABG consult: Pt is s/p CABG x4 POD 3 per EMR. Pt also presents with an A1c of 8.9% this admit. Pt seen at bedside for written/verbal diabetes and heart healthy/high protein nutrition education. Pt states he sees his PCP every few months and takes his medication as prescribed. Pt states his A1c is higher than normal due to not eating well the last few months. Noted premiere protein shake at bedside. RD contact also provided and encouraged pt to reach out for any nutrition questions or concerns. Addendum: 09/22/23 at [address] Amended: Links added.
[2023-09-22] MEDS ORDERED: AMI200T PO (19:46)
[2023-09-22] MEDS: traZODone 150mg tablet PO SCH (21:20)
[2023-09-22] MEDS: atorvastatin 10mg tablet PO SCH (21:21)
[2023-09-22] MEDS: insulin glargine (Lantus) pen - multi-dose SQ SCH (21:25)
[2023-09-22] MEDS: amiodarone 200mg tablet PO SCH (21:26)
[2023-09-23] MEDS: oxyCODONE/APAP 10/325mg tablet PO PRN ×4 (00:35→13:52)
[2023-09-23 02:00] VITALS: BP 125/76; PULSE 96; RESP 16; TEMP 98.2; O2SAT 96
[2023-09-23 05:35] LABS: ALBUMIN 2.4 G/DL (3.4-5.0); ANION GAP 4 (8-16); BLOOD UREA NITROGEN 22 MG/DL (7-18); BUN/CREATININE RATIO 32.4 (10.0-20.0); CALCIUM 8.2 MG/DL (8.5-10.1); CHLORIDE 104 MMOL/L (99-107); CREATININE 0.68 MG/DL (0.60-1.10); GLUCOSE 149 MG/DL (70-104); POTASSIUM 3.9 MMOL/L (3.5-5.1); SODIUM 136 MMOL/L (135-145); eCRCL 133 ML/MIN; eGFR > 90 ML/MIN
[2023-09-23 05:42] LABS: BASOPHILS # (AUTO) 0.1 X10'3 (0-0.2); BASOPHILS % (AUTO) 0.9 % (0-1); EOSINOPHILS % (AUTO) 0.5 % (0-6); HEMATOCRIT 37.6 % (42.0-52.0); HEMOGLOBIN 12.6 g/dl (14.0-17.9); LYMPHOCYTES # (AUTO) 1.9 X10'3 (1.1-4.8); LYMPHOCYTES % (AUTO) 22.3 % (21-51); MEAN CORPUSCULAR HEMOGLOBIN 30.4 PG (27.0-31.0); MEAN CORPUSCULAR HGB CONC 33.4 g/dL (33.0-36.5); MEAN CORPUSCULAR VOLUME 91.2 FL (78-98); MEAN PLATELET VOLUME 8.3 FL (7.4-10.4); MONOCYTES # (AUTO) 0.8 X10'3 (0-0.9); MONOCYTES % (AUTO) 9.8 % (2-12); NEUTROPHILS # (AUTO) 5.5 X10'3 (1.8-7.7); NEUTROPHILS % (AUTO) 66.5 % (42-75); PLATELET COUNT 204 X10'3 (140-440); RED BLOOD COUNT 4.13 X10'6 (4.70-6.10); RED CELL DISTRIBUTION WIDTH 15.4 % (11.5-14.5); WHITE BLOOD COUNT 8.3 X10'3 (4.5-11.0)
[2023-09-23 06:00] VITALS: BP 103/63; PULSE 96; RESP 19; TEMP 98.3; O2SAT 96
--- NOTE | 2023-09-23 06:15 | NUR ---
Problems reprioritized. Patient report given, questions answered & plan of care reviewed with Arie HAMILTON. Addendum: 09/23/23 at 0615 by Tiffany Lambert RN Amended: Links added.
[2023-09-23] MEDS: ketorolac trometh. 30mg/ml inj. IV SCH ×2 (07:59→14:00)
[2023-09-23 08:00] VITALS: RESP 18; O2SAT 97
[2023-09-23] MEDS: metoprolol tartrate 25mg tablet PO SCH ×2 (08:00→08:20)
[2023-09-23] MEDS: LIDOcaine 5% patch TP SCH (08:00)
[2023-09-23] MEDS: metoprolol tartrate 12.5mg (1/2 tablet) PO SCH (08:05)
[2023-09-23] MEDS: lactose-reduced food (Ensure Enlive) - 237ml bottle PO SCH ×2 (08:07→13:54)
[2023-09-23] MEDS: buPROPion SR 150mg tablet PO SCH (08:07)
[2023-09-23] MEDS: sennosides/docusate sodium tablet PO SCH (08:07)
[2023-09-23] MEDS: magnesium Cl slow-release 64mg tablet PO SCH (08:07)
[2023-09-23] MEDS: amiodarone 200mg tablet PO SCH (08:07)
[2023-09-23] MEDS: aspirin 81mg tab.chew PO SCH (08:07)
[2023-09-23] MEDS: pantoprazole 40mg Tablet.DR PO SCH (08:07)
[2023-09-23 08:20] VITALS: PULSE 75
[2023-09-23] MEDS: hydrocortisone 10mg tablet PO SCH (08:20)
[2023-09-23] MEDS ORDERED: ondansetron 4mg rapidly disintigrating tab PO PRN (12:58)
== END 2023-09-23 15:54 | disposition home or self-care (01) | DRG 236 ==
LOC: PAS IN 10:51 → ICU 2S 18:12 → PCU 3S 09-21 17:50 → SUR 3N 09-23 12:23 → PCU 3S 09-23 12:24
PROVIDERS: ADMIT Thoracic Surgery (Cardiothoracic Vascular Surgery); ATTEND Thoracic Surgery (Cardiothoracic Vascular Surgery)
PROC: 02100Z8 Bypass Coronary Artery, One Artery from Right Internal Mammary, Open Approach (ICD-10-PCS; 2023-09-19)
PROC: 021109W Bypass Coronary Artery, Two Arteries from Aorta with Autologous Venous Tissue, Open Approach (ICD-10-PCS; 2023-09-19)
PROC: 06BQ4ZZ Excision of Left Saphenous Vein, Percutaneous Endoscopic Approach (ICD-10-PCS; 2023-09-19)
PROC: B24BZZ4 Ultrasonography of Heart with Aorta, Transesophageal (ICD-10-PCS; 2023-09-19)
PROC: 02100Z9 Bypass Coronary Artery, One Artery from Left Internal Mammary, Open Approach (ICD-10-PCS; principal; 2023-09-19 13:09)
PROC: 5A09357 Assistance with Respiratory Ventilation, Less than 24 Consecutive Hours, Continuous Positive Airway Pressure (ICD-10-PCS; 2023-09-22)
DX: I25.10 Atherosclerotic heart disease of native coronary artery without angina pectoris (principal); E11.9 Type 2 diabetes mellitus without complications; E78.5 Hyperlipidemia, unspecified; I10 Essential (primary) hypertension; G89.29 Other chronic pain; Z20.822 Contact with and (suspected) exposure to COVID-19; M54.9 Dorsalgia, unspecified
CPT/HCPCS: 93312; 93325; Z7506; Z7508; 36415; 36600; 71045; 71046; 80048; 80053; 81001; 82330; 82435; 82803; 82947; 82948; 83036; 83735; 84100; 84132; 84295; 85018; 85025; 85347; 85610; 85730; 86885; 86900; 86901; 86920; 87081; 87502; 87503; 87811; 93005; 93880; 93970; 94002; 94010; 94760; 97116; 97161; 97530; A4615; A4618; A6213; A6258; A6402; A6449; A7000; A7048; C1751; G0378; J0131; J0171; J0282; J0690; J1644; J1815; J1885; J1940; J2060; J2250; J2270; J2405; J2440; J2704; J3370; J3475; J3480; J3490; J7030; J7040; J7050; J7120; P9045; S0020